=== PATIENT | female | born 1945 | race Caucasian/White ===

== ENCOUNTER 2016-10-08 10:19 | Emergency (ER) | payer MEDICARE, OTHER ==
[2016-10-08] MEDS ORDERED: Aspirin 81 MG Tab.EC PO ONE (10:30)
[2016-10-08] MEDS ORDERED: Aspirin 81 MG Tab.Chew PO ONE (10:30)
[2016-10-08] MEDS ORDERED: Sodium Chloride 0.9% 1,000 ML IV ONE (10:54)
[2016-10-08] MEDS ORDERED: Nitroglycerin/D5W 25 MG/250 ML BOTTLE IV SCH (11:00)
[2016-10-08] MEDS: Nitroglycerin 0.4 MG Tab.SL SL PRN ×2 (11:03→11:15)
[2016-10-08] MEDS ORDERED: LORazepam 2 MG/ML MDV IVPUSH ONE ×2 (11:31→12:03)
[2016-10-08] MEDS ORDERED: diphenhydrAMINE 50 MG/ML SDV IVPUSH ONE (11:32)
[2016-10-08] MEDS ORDERED: Heparin Sodium/D5W 25,000 UNITS/500 ML BAG IV SCH (13:45)
[2016-10-08] MEDS ORDERED: Heparin Sodium 5,000 Units/ML Vial IVPUSH ONE (13:48)
--- NOTE | 2016-10-08 13:49 | CR ---
INDICATION: Chest heaviness. Not relenting. CHEST: An AP upright portable view of the chest 10/08/2016 was compared with , again revealing what appears to be exogenous obesity. The heart appears to be at the upper limits of normal in size. The aorta is tortuous with some minimal calcification in the arch suggested. Overlying EKG leads are noted. A definite active infiltrate or effusion was not identified. The study was obtained somewhat lordotic in positioning. IMPRESSION: 1. No acute process. 2. Probable ASHD. 3. Exogenous obesity. MTDD
[2016-10-08] MEDS ORDERED: Clopidogrel 75 MG Tab PO ONE (13:50)
[2016-10-08] MEDS ORDERED: LORazepam 2 MG/ML MDV IVPUSH PRN (14:06)
[2016-10-08 15:29] VITALS: BP 124/76
--- NOTE | 2016-10-08 16:15 | ER ---
DATE SEEN: 10/08/2016 CHIEF COMPLAINT: Chest heaviness. HISTORY OF PRESENT ILLNESS: This 71-year-old woman with hypertension, history of palpitation, diabetes, hypothyroidism, treated GERD, right TKA, and obesity, presents with onset of chest heaviness last night. It was 4/10 in intensity. She took one of her medicines used for intermittent palpitations, 60 mg of propranolol orally, and seemed to diminish and went away. Today, she took the propranolol and the chest pain did not go away. She has chest heaviness, 8/10 in intensity, nonradiating, but she notes she has some palpitation again today. ALLERGIES: Diazepam causes itching. Meloxicam, tetracycline, ciprofloxacin. PAST MEDICAL HISTORY: Negative except for noted above. Denies compromised vision, back pain, arm pain, jaw pain, neck pain, abdominal pain, nausea, vomiting, diarrhea, constipation, blood in the stool, or black tarry stools. She has mild arthritis of the hips and knees with total right knee arthroplasty. No pedal edema in lower extremities. No falls or history of near syncope or syncope. MEDICATIONS: 1. Atorvastatin 10 mg h.s. 2. Venlafaxine 150 mg h.s. 3. Sucralfate 1 g q.i.d. 4. Zoloft 100 mg daily. 5. Propranolol 40 mg p.r.n., otherwise propranolol long-acting 60 mg daily. 6. Eyedrops. 7. Oxybutynin chloride (Ditropan) 20 mg daily. 8. Metformin 500 mg b.i.d. 9. Omeprazole 40 mg daily. 10.Levothyroxine 125 mcg daily. 11.Calcium carbonate/vitamin D. 12.BuSpar 5 mg b.i.d. 13.Aspirin 81 mg. 14.Acetaminophen 650 p.r.n. PHYSICAL EXAMINATION: VITAL SIGNS: Blood pressure 123/71, heart rate 105, respirations 18, oxygen saturation 98%, temperature 36.5 degrees. CONSTITUTIONAL: Obese woman, in moderate distress with moderate heaviness. Without flushing in her face. She has mild paleness of the face. She is communicative, appropriate, and oriented. HEENT: PERRLA intact and moderate full face because of her obesity. Pharynx without abnormality. NECK: No bruits. No thyromegaly. No masses. LUNGS: Clear to auscultation without rales, rhonchi, or wheezes. HEART: S1, S2. No irregular rate or rhythm. No S3, no S4. ABDOMEN: Soft, increased abdominal girth secondary to obesity. EXTREMITIES: Trace 1+ pedal edema. Lower extremities without pain or tenderness of the vascular structures. Deep tendon reflexes hypoactive in upper and lower extremities. WORKING DIAGNOSES: Rule out myocardial infarction, unstable angina, non-ST- elevation myocardial infarction, ST-elevation myocardial infarction, or pulmonary embolus. LABORATORY FINDINGS: White count 4600, PMNs 61, lymphs 33, monos 6, hemoglobin 13.7, Platelets 225,000. Complete metabolic panel normal except for GFR low at 55. Glucose 162. AST slightly elevated at 37, ALT 51, alkaline phosphatase slightly elevated at 52. Troponin x2 of 0.01 and repeat 0.01. TSH 10.21, elevated. EKG; nonspecific ST depression in lead I and aVL without involving the lateral precordials. Old inferior myocardial infarction with Q-waves in lead III and aVF. No acute STEMI. Chest x-ray: Cardiomegaly. Heart, upper limits of normal. Aorta tortuous. Mild calcification. Exogenous obesity. DIAGNOSES: 1. Unstable angina. 2. Obesity. 3. Risk factors of hypertension, dyslipidemia, diabetes, and hypothyroidism. 4. Gastroesophageal reflux disease. 5. Right total knee arthrosis. 6. Hypertension. 7. Possible nonalcoholic fatty liver disease or nonalcoholic steatohepatitis with elevated AST and ALT. EMERGENCY ROOM COURSE: The patient received nitroglycerin sublingual and IV and brought her chest pain down. Chest manifests itself as symptoms of heaviness. It is 2/10. It has not completely gone away. Repeat EKG is no change in ST-segment. Repeat troponin is 0.01. No increase. The patient's study discussed with Dr. Rodriguez, hospitalist in [place] in [place]. The patient will be transferred for further evaluation. The patient was seen at 1030 hours. /[id number] GORDON/SULLY VALDEZ
== END 2016-10-08 14:47 ==
LOC: FB.ED 10:19
DX: I20.0 Unstable angina (principal); I10 Essential (primary) hypertension; E78.5 Hyperlipidemia, unspecified; E11.9 Type 2 diabetes mellitus without complications; E66.9 Obesity, unspecified; E03.9 Hypothyroidism, unspecified; Z96.651 Presence of right artificial knee joint; R79.89 Other specified abnormal findings of blood chemistry; K21.9 Gastro-esophageal reflux disease without esophagitis; Z88.8 Allergy status to other drugs, medicaments and biological substances; Z88.1 Allergy status to other antibiotic agents; Z79.899 Other long term (current) drug therapy; Z79.84 Long term (current) use of oral hypoglycemic drugs; Z79.82 Long term (current) use of aspirin
CPT/HCPCS: 36415; 71010; 80053; 84443; 84484; 85025; 85379; 85610; 85730; 93005; 96365; 96368; 96375; 99285; A9270; J1200; J1644; J2060; J7040; 96376; 99284

== ENCOUNTER 2021-01-27 12:08 | Emergency (ER) | payer MEDICARE, OTHER ==
--- NOTE | 2021-01-27 12:51 | EDM.PDOC ---
ED HPI GENERAL MEDICAL PROBLEM - General Chief Complaint: Head Injury Stated Complaint: FALL Time Seen by Provider: 01/27/21 12:47 Source of Information: Reports: Patient History Limitations: Reports: No Limitations - History of Present Illness INITIAL COMMENTS - FREE TEXT/NARRATIVE: Patient tripped and fell while returning her garbage cans to the garage while wearing flip flops. She fell backwards landed in a seated position than struck the back of her head against the concrete floor. No loss of consciousness. Patient complains of mild occipital headache and swelling, but no neck pain. No other complaints or injuries. Duration: Hour(s): (1) Location: Reports: Head Severity: Moderate - Related Data Allergies Allergy/AdvReac Type Severity Reaction Status Date / Time diazepam [From Valium] Allergy Itching Verified 09/26/18 10:48 meloxicam Allergy Itching Verified 09/26/18 10:48 Tetracyclines Allergy Itching Verified 09/26/18 10:48 Citprofloxacin Allergy Nausea Uncoded 01/20/15 14:34 Home Meds: Home Meds Acetaminophen 650 mg PO Q4H PRN 10/08/16 [History] Aspirin [Halfprin] 81 mg PO BEDTIME 10/08/16 [History] Calcium Carbonate/Vitamin D3 [Calcium 600 + Vit D 200] 1 tab PO DAILY 10/08/16 [History] Levothyroxine Sodium [Synthroid] 125 mcg PO DAILY 10/08/16 [History] Multivit-Min/FA/Lycopen/Lutein [Centrum Silver Tablet] 1 tab PO DAILY 10/08/16 [History] Omeprazole 40 mg PO DAILY 10/08/16 [History] Oxybutynin Chloride [Ditropan Xl] 20 mg PO DAILY 10/08/16 [History] Polyvinyl Alcohol/Povidone/Pf [Refresh Classic Eye Drops] 1 drop EYEBOTH TID 10/08/16 [History] Propranolol [Inderal LA] 60 mg PO DAILY 10/08/16 [History] Propranolol [Inderal] 40 mg PO DAILY PRN 10/08/16 [History] Sertraline [Zoloft] 100 mg PO DAILY 10/08/16 [History] Sucralfate [Carafate] 1 gm PO QIDACANDBED PRN 10/08/16 [History] Venlafaxine HCl [Venlafaxine HCl ER] 150 mg PO DAILY 10/08/16 [History] atorvaSTATin [Lipitor] 10 mg PO BEDTIME 10/08/16 [History] busPIRone [Buspar] 5 mg PO BID 10/08/16 [History] cephALEXin [Keflex] 2,000 mg PO ASDIRECTED PRN 10/08/16 [History] metFORMIN [Glucophage XR] 500 mg PO BIDMEALS 10/08/16 [History] Past Medical History HEENT History: Reports: Cataract Cardiovascular History: Reports: High Cholesterol, Other (See Below) Other Cardiovascular History: palpitations Gastrointestinal History: Reports: GERD Genitourinary History: Reports: None 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: Musculoskeletal History: Reports: Arthritis, Neck Pain, Chronic Psychiatric History: Reports: Anxiety, Depression, Panic Attack Endocrine/Metabolic History: Reports: Diabetes, Type II, Hypothyroidism, Obesity/BMI 30+ - Infectious Disease History Infectious Disease History: Reports: Chicken Pox, Hepatitis non A,B,C, Measles, Mumps - Past Surgical History HEENT Surgical History: Reports: Cataract Surgery, Tonsillectomy GI Surgical History: Reports: Appendectomy, Cholecystectomy, Colonoscopy, Hernia Repair/Other Female Surgical History: Reports: Hysterectomy, Salpingo-Oophorectomy Musculoskeletal Surgical History: Reports: Knee Replacement Social & Family History - Family History Family Medical History: No Pertinent Family History - Caffeine Use Caffeine Use: Reports: Coffee, Soda ED ROS GENERAL - Review of Systems Review Of Systems: Comprehensive ROS is negative, except as noted in HPI. ED EXAM, HEAD INJURY - Physical Exam Exam: See Below Exam Limited By: No Limitations General Appearance: Alert, WD/WN, No Apparent Distress Head: Normocephalic, Other (right occipital scalp swelling and tenderness) Nexus Criteria: No: Posterior, Midline Cervical Tenderness Eyes: Bilateral Eye: EOMI, PERRL Nose: Normal Inspection Throat/Mouth: No Airway Compromise Neck: Non-Tender Respiratory: No Respiratory Distress, Lungs Clear, Normal Breath Sounds Cardiovascular: Regular Rate, Rhythm, No Murmur GI/Abdominal Exam: Non-Tender Back Exam: Normal Inspection Extremities: Normal Inspection, Normal Range of Motion Neurologic: No Motor/Sensory Deficits, Alert, Normal Mood/Affect, Oriented x 3 Skin: Normal Color, Warm/Dry, Other (Intact) - Robbie Coma Score Best Eye Response (Robbie): (4) Open Spontaneously Best Verbal Response (Robbie): (5) Oriented Best Motor Response ([place]): (6) Obeys Commands [place] Total: 15 Course - Vital Signs Last Recorded V/S: Last Vital Signs Temp 36.8 C 01/27/21 12:18 Pulse 93 01/27/21 12:18 Resp 18 01/27/21 12:18 BP 144/76 H 01/27/21 12:18 Pulse Ox 96 01/27/21 12:18 - Orders/Labs/Meds Orders: Active Orders 24 hr Category Date Time Status Cervical Spine wo Cont [CT] Stat Exams 01/27/21 12:11 Taken Head wo Cont [CT] Stat Exams 01/27/21 12:12 Taken - Radiology Interpretation Free Text/Narrative:: CT Head s/ contrast: No acute process. (per Dr. Peace) CT C-spine s/ contrast: No fracture or subluxation. (per Dr. Peace) Departure - Departure Time of Disposition: 13:03 Disposition: Home, Self-Care 01 Condition: Good Clinical Impression: Minor head injury Qualifiers: Encounter type: initial encounter Qualified Code(s): S09.90XA - Unspecified injury of head, initial encounter - Discharge Information *PRESCRIPTION DRUG MONITORING PROGRAM REVIEWED*: No *COPY OF PRESCRIPTION DRUG MONITORING REPORT IN PATIENT HUGO: Not Applicable Instructions: Head Injury, Adult, [id number] Forms: ED Department Discharge Additional Instructions: Rest. Ice. Take Tylenol as needed. Return to the ER if symptoms worsen. Sepsis Event Note (ED) - Focused Exam Vital Signs: Vital Signs Temp Pulse Resp BP Pulse Ox 01/27/21 12:18 36.8 C 93 18 144/76 H 96 - My Orders Last 24 Hours: My Active Orders 01/27/21 12:11 Cervical Spine wo Cont [CT] Stat 01/27/21 12:12 Head wo Cont [CT] Stat - Assessment/Plan Last 24 Hours: My Active Orders 01/27/21 12:11 Cervical Spine wo Cont [CT] Stat 01/27/21 12:12 Head wo Cont [CT] Stat
[2021-01-27 13:07] VITALS: BP 144/76; PULSE 93
--- NOTE | 2021-01-27 13:21 | CT ---
INDICATION: Fall. CT HEAD WITHOUT CONTRAST: Spiral 3.75 mm axial sections were obtained through the brain without contrast 01/27/21 with axial, sagittal and coronal reconstructions and compared with 01/22/19. Total exam DLP was 1296.53 milligray/cm. There is now noted thickening of the lining of a portion of the left maxillary antrum with the paranasal sinuses otherwise well aerated. Mastoid air cells are well aerated. No cranial fracture site was identified. Scalp hematoma of moderate size is noted posterior parietal occipital area on the right extending slightly across the midline. The orbits appear to be intact. There appears to be some mild calcification in the [place] of the vertebral and internal carotid arteries. No shift of midline structures or significant ventricular abnormalities were identified with slight asymmetry likely a normal variant. Periventricular white matter changes are noted compatible with a mild degree of microvascular disease most prevalent in the frontoparietal area. No other abnormal areas of density were identified - no bleeding site or hematoma was identified. IMPRESSION: 1. No acute intracranial abnormality. 2. Cerebrovascular disease with white matter changes compatible with mild microvascular disease. [facility]
--- NOTE | 2021-01-27 13:36 | CT ---
INDICATION: Injury - fall struck back of head. CT CERVICAL SPINE WITHOUT CONTRAST: Spiral 2.5 mm axial sections were obtained through the cervical spine with sagittal and coronal reconstructions 01/27/21 - no comparisons. Total exam DLP was 434.26 milligray/cm. Straightening of the normal cervical lordosis is noted. Moderate hypertrophic degenerative changes and some periarticular calcification is noted at the odonto-atlantian joint with narrowing of the joint space of moderate degree. The C2-3 disc space and the remainder of the disc spaces except for C6-C7 appear to be narrowed. Hypertrophic degenerative changes off vertebral bodies anteriorly and posteriorly are noted at C4-5 and C5-6 and very minimally at C6-7 posteriorly. The neural foramina appear to be fairly patent. Vertebral body heights were well maintained without a definite fracture or dislocation identified. The atlas and axis appear to be intact as is the odontoid process. Degenerative changes are noted at the uncinate joints mainly at C2-3 through C5-6. Bone density appeared to be normal. Prevertebral spaces appeared to be normal. There appear to be lobar emphysematous changes in the upper lung [place] visualized. IMPRESSION: 1. No acute fracture or dislocation. 2. Osteoarthritis. Report was called to Dr. Kessler at 1259 hours 01/27/21. [facility]
== END 2021-01-27 13:25 | disposition home or self-care (01) ==
LOC: FB.ED 12:08
DX: S09.90XA Unspecified injury of head, initial encounter (principal); E78.00 Pure hypercholesterolemia, unspecified; E11.9 Type 2 diabetes mellitus without complications; E03.9 Hypothyroidism, unspecified; E66.9 Obesity, unspecified; K21.9 Gastro-esophageal reflux disease without esophagitis; Z68.30 Body mass index [BMI] 30.0-30.9, adult; Z88.1 Allergy status to other antibiotic agents; Z88.5 Allergy status to narcotic agent; Z88.8 Allergy status to other drugs, medicaments and biological substances; Z79.82 Long term (current) use of aspirin; Z79.899 Other long term (current) drug therapy
CPT/HCPCS: 70450; 72125; 99282; 99284-25

== ENCOUNTER 2021-09-08 12:57 | Emergency (ER) | payer MEDICARE, OTHER ==
[2021-09-08 13:46] VITALS: BP 148/66; PULSE 92
[2021-09-08] MEDS ORDERED: Ketorolac 30 MG/ML SDV IM STA (14:04)
[2021-09-08] MEDS ORDERED: Acetaminophen/oxyCODONE 325-5 MG Tab PO STA (14:04)
== END 2021-09-08 14:46 | disposition home or self-care (01) ==
LOC: FB.ED 12:57
DX: S43.402A Unspecified sprain of left shoulder joint, initial encounter (principal); S40.012A Contusion of left shoulder, initial encounter; E78.00 Pure hypercholesterolemia, unspecified; K21.9 Gastro-esophageal reflux disease without esophagitis; E11.9 Type 2 diabetes mellitus without complications; E03.9 Hypothyroidism, unspecified; E66.9 Obesity, unspecified; Z88.5 Allergy status to narcotic agent; Z88.1 Allergy status to other antibiotic agents; Z88.8 Allergy status to other drugs, medicaments and biological substances; Z68.39 Body mass index [BMI] 39.0-39.9, adult; Z79.82 Long term (current) use of aspirin; Z79.899 Other long term (current) drug therapy; W01.0XXA Fall on same level from slipping, tripping and stumbling without subsequent striking against object, initial encounter
CPT/HCPCS: 73030; 96372; 99283; A9270; J1885